=== PATIENT | female | born 1940 | race Caucasian/White ===

== ENCOUNTER 2016-05-29 13:35 | Inpatient (IN) | payer MEDICARE, BC ==
[~2016-05-29] VITALS: Ht 167.6 cm; Wt 72.6 kg
--- NOTE | 2016-05-29 13:25 | NUR ---
RECIEVED PERSONAL PASSENGER AT FRONT DOOR FROM [facility];GREETED WITH WC.ORIENTED TO RM [id number];CL IN REACH.DRSG DRY AND INTACT TO LEFT HIP.
--- NOTE | 2016-05-29 16:00 | NUR ---
RESTING QUIETLY.CL IN REACH.
[2016-05-29 16:30] VITALS: BP 96/69; BMI 25.8
[2016-05-29 19:16] VITALS: BP 106/75
--- NOTE | 2016-05-29 19:45 | NUR ---
PT IN BED WITH OUT GOING NURSE AT BEDSIDE. NO NEEDS OR COMPLAINTS MADE KNOWN AT THIS TIME. ELEVATED TEMP OF 101.1 WITH TYLENOL GIVEN BY OUTGOING NURSE. WILL REASSES. CALL LIGHT IN REACH.
--- NOTE | 2016-05-29 22:10 | NUR ---
PT TEMP REASSESSED WITH A TEMP OF 99.4. WILL CONTINUE TO OBSERVE. CALL LIGHT IN REACH.
--- NOTE | 2016-05-30 01:52 | NUR ---
PT IN BED WITH EYES CLOSED AND CHEST RISING. NO SIGN/SYMPTOMS OF DISTRESS NOTED AT THIS TIME. CALL LIGHT IN REACH.
--- NOTE | 2016-05-30 05:34 | NUR ---
PT IN BED AND REQUEST ASSIST TO BATHROOM WITH ASSIST PROVIDED. PT COMPLAINS OF PAIN TO LEFT HIP 8/ WITH PRN NORCO GIVEN WITH SCHEDULED MEDICATION WITHOUT DIFFICULTY. DRESSING TO LEFT HIP SATURATED WITH SEROSENQUINOUS FLUID AND TAPE TORN AND REMOVED AND REPLACED. TOLERATED WELL. INCISION CLEAN AND WELL APPROXIMATED. NO OTHER COMPLAINTS OR CONCERNS MADE KNOWN. CALL LIGHT IN REACH.
[2016-05-30] MEDS ORDERED: SYNTHROID50 MCG PO (06:37)
[2016-05-30] MEDS ORDERED: PROTONIX40 MG PO (06:39)
[2016-05-30] MEDS ORDERED: ACETAMINOPHEN325 MG PO (06:40)
[2016-05-30] MEDS ORDERED: NEURONTIN 300300 MG PO (06:41)
[2016-05-30] MEDS ORDERED: GLUCOPHAGE500 MG PO (06:41)
[2016-05-30] MEDS ORDERED: LOVASTATIN40 MG PO (06:42)
[2016-05-30] MEDS ORDERED: OXYBUTYNIN CHLOR5 MG PO (06:43)
[2016-05-30] MEDS ORDERED: NAMENDA10 MG PO (06:44)
[2016-05-30] MEDS ORDERED: BUSPAR5 MG PO (06:44)
[2016-05-30] MEDS ORDERED: NORCO 7.5/325 T1 TA1 PO (06:45)
[2016-05-30] MEDS ORDERED: ASPIRIN81 MG PO (06:46)
--- NOTE | 2016-05-30 08:00 | NUR ---
SHIFT ASSMT COMPLETED.DENIES NEEDS.LEFT HIP DRAINING SEROSANGNEOUS.LET UPPER THIGH RED.AND SWOLLEN.CL IN REACH.
[2016-05-30 09:04] VITALS: BP 99/69
--- NOTE | 2016-05-30 09:30 | NUR ---
DRSG CHANGED.INCISION CLEANED.CULTURE OBTAINED.
--- NOTE | 2016-05-30 12:00 | NUR ---
EATING LUNCH.CL IN REACH.
[2016-05-30 12:44] LABS: BASOPHILS 0.2 % (0.0-2.0); HEMATOCRIT 28.8 % (36.0-48.0); HEMOGLOBIN 9.2 g/dL (12-16); IMMATURE GRANULOCYTES 0.2 % (0-5); LYMPHOCYTES 23.6 % (15-50); MCH 29.8 pg (26.0-34.0); MCHC 31.9 g/dL (31.0-37.0); MCV 93.2 fL (80.0-100.0); MEAN PLATELET VOLUME 8.9 fL (7.4-10.4); MONOCYTES 8.9 % (2-11); NEUTROPHILS 65.1 % (40-80); PLATELET COUNT 175 10x3/uL (130-400); RBC 3.09 10x6/uL (4.00-5.40); RDW 14.3 % (11.5-14.5); WBC 5.4 10x3/uL (4.8-10.8)
[2016-05-30 13:07] LABS: ANION GAP 13.7 mmol/L (8-16); CALCIUM 8.9 mg/dL (8.5-10.1); CARBON DIOXIDE 24.3 mmol/L (21.0-32.0)
[2016-05-30 14:16] VITALS: Ht 167.6 cm; Wt 72.6 kg
--- NOTE | 2016-05-30 17:02 | NUR ---
CARE TEAM MEETING: PATIENT NEW TO UNIT AND WILL BE RA AT NEXT MEETING. WILL CONTINUE TO FOLLOW WITH PATIENT UNTIL DISCHARGED
[2016-05-30 19:54] VITALS: BP 118/52
--- NOTE | 2016-05-30 20:10 | NUR ---
ASSISTED PT TO BATHROOM, COLLECTED URINE SPECIMEN, ASSISTED PT BACK TO BED, PT HAS NO COMPLAINTS AT THIS TIME, BED IN LOWEST POSITION AND CALL LIGHT WITHIN REACH.
[2016-05-30 21:07] LABS: APPEARANCE CLEAR (CLEAR); BILIRUBIN NEGATIVE (NEGATIVE); COLOR YELLOW (YELLOW); GLUCOSE NEGATIVE (NEGATIVE); KETONE NEGATIVE (NEGATIVE); LEUKOCYTE ESTERASE TRACE (NEGATIVE); NITRITE NEGATIVE (NEGATIVE); PROTEIN NEGATIVE (NEGATIVE); UROBILINOGEN NORMAL (NORMAL)
[2016-05-30 21:08] LABS: EPITHELIAL CELLS 0-5 /hpf (0-5); RED CELLS - URINE OCC /hpf (0-5); WHITE CELLS - URINE OCC /hpf (0-5)
--- NOTE | 2016-05-31 00:10 | NUR ---
PT IN BED WITH HOB UP FOR COMFORT, EYES CLOSED, CHEST RISING AND FALLING, BED IN LOWEST POSITION, BED ALARM ON, AND CALL LIGHT WITHIN REACH.
--- NOTE | 2016-05-31 02:05 | NUR ---
RESTING IN BED ON LEFT SIDE. NO DISTRESS EVIDENT.
--- NOTE | 2016-05-31 04:25 | NUR ---
PT IN BED WITH HOB UP FOR COMFORT, EYES CLOSED, CHEST RISING AND FALLING, BED IN LOWEST POSITION AND CALL LIGHT WITHIN REACH.
--- NOTE | 2016-05-31 08:00 | NUR ---
SHIFT ASSMT COMPLETED.DRAINAGE FROM LT HIP INCISION LESSENED.DRSG REMAINS INTACT.DENIES NNEDS.
[2016-05-31 09:04] VITALS: BP 89/46
--- NOTE | 2016-05-31 12:00 | NUR ---
TAKEN TO ROOM SET UP FOR MEAL.NOTIFIED WITH C/O PAIN IN CALF AND FREQUENT DRY COUGH.CL IN REACH.
--- NOTE | 2016-05-31 12:00 | NUR ---
REMAINS UP IN TO DO MOUTHCARE.CL IN REACH.
--- NOTE | 2016-05-31 12:31 | NUR ---
CALLED WITH ORDERS TO GET VENOUS DOPPLER AND START MUCINEX.
--- NOTE | 2016-05-31 16:00 | NUR ---
ASSISTED TO BED.CL IN REACH.STATES LEG HURTING MORE TODAY THAN YESTERDAY.
--- NOTE | 2016-05-31 19:30 | NUR ---
PT IN BED WITH HOB UP FOR COMFORT, WATCHING TV, PT STATES SHE HAS A PAIN LEVEL OF 9/10 AND REQUESTED A PAIN PILL, BED IN LOWEST POSITION, BED ALARM ON, AND CALL LIGHT WITHIN REACH.
[2016-05-31 20:57] VITALS: BP 123/66
--- NOTE | 2016-05-31 23:30 | NUR ---
PT IN BED WITH HOB UP FOR COMFORT, EYES CLOSED, CHEST RISING AND FALLING, BED IN LOWEST POSITION, BED ALARM ON, AND CALL LIGHT WITHIN REACH.
--- NOTE | 2016-06-01 01:30 | NUR ---
PT RESTING, EYES CLOSED. BED LOW. CL IN REACH.
--- NOTE | 2016-06-01 02:57 | NUR ---
PT IN BED WITH HOB UP FOR COMFORT, RESTING QUIETLY, RESPIRATIONS EVEN AND UNLABORED, BED IN LOWEST POSITION, BED ALARM ON, AND CALL LIGHT WITHIN REACH.
--- NOTE | 2016-06-01 06:06 | NUR ---
ASSISTED PT TO BATHROOM AND BACK TO BED.
--- NOTE | 2016-06-01 07:30 | NUR ---
LAYING IN BED WITH EYES CLOSED. WAKES EASILY. ALERT AND ORIENTED X3. SPEECH CLEAR. C/O PAIN LEFT HIP. GARRETT NOTED TO INCISION. DENIES NUMBNESS OR TINGLING TO LLE. PEDAL PULSES PRESENT X2. BED ALARM IN USE TO REMIND PT NOT TO GET UP BY SELF.
[2016-06-01 08:43] VITALS: BP 92/43
--- NOTE | 2016-06-01 10:30 | NUR ---
UP IN W/C DENIES NEEDS.
--- NOTE | 2016-06-01 12:04 | NUR ---
SITTING IN W/C IN ROOM EATING LUNCH. PAIN CONTROLLED ON CURRENT MEDS.
--- NOTE | 2016-06-01 13:18 | NUR ---
Nutrition Follow Up: Pt was unavailable at the time of RD visit. Interview deferred. Chart reviewed. Pt is eating 58% meal avg on a diabetic diet. No BM since admit. Wt stable. Labs noted. Meds noted including Metformin. Pt with fair po intake at this time. Rec continue current diet. Will add Glucerna BID. RD following.
[2016-06-01 18:58] VITALS: BP 103/56
--- NOTE | 2016-06-01 19:20 | NUR ---
PT IN BED VISITIN WITH FAMILY, BED IN LOWEST POSITION AND CALL LIGHT WITHIN REACH.
--- NOTE | 2016-06-01 22:30 | NUR ---
PT IN BED WITH HOB UP FOR COMFORT, EYES CLOSED, CHEST RISING AND FALLING, BED IN LOWEST POSITION AND CALL LIGHT WIHTIN REACH.
--- NOTE | 2016-06-02 02:51 | NUR ---
PT ASSISTED TO BR. PT BACK IN BED AND DENIES NEEDS. BED LOW. CL IN REACH.
--- NOTE | 2016-06-02 06:21 | NUR ---
PT AM MEDS ADMINISTERED. PT ASSISTED TO BR. PT BACK IN BED AND DENIES FURTHER NEEDS.
[2016-06-02 07:00] VITALS: BP 98/61
--- NOTE | 2016-06-02 07:30 | NUR ---
RESTING QUIETLY IN BED. EYES CLOSED. CALL LIGHT IN REACH
--- NOTE | 2016-06-02 10:59 | NUR ---
SITTING UP IN W/C TALKING TO THERAPIST
--- NOTE | 2016-06-02 14:39 | NUR ---
UP IN W/C. DENIES INCREASED PAIN OR NEEDS
--- NOTE | 2016-06-02 19:45 | NUR ---
PT RECEIVED IN BED WATCHING TV. REQUEST ASSIST TO GO TO BATHROOM WITH ASSIST GIVEN. AMBULATES USING WALKER WITHOUT DIFFICULTY, WITH COMPLAINTS OF PAIN WHEN SHE IS UP WALKING. PT RETURNED TO BED AND NO OTHER NEEDS MADE KNOWN. CALL LIGHT IN REACH.
[2016-06-03 01:52] VITALS: BP 109/46
--- NOTE | 2016-06-03 03:15 | NUR ---
PT IN BED WITH EYES CLOSED AND CHEST RISING. NO SIGN/SYMPTOMS OF DISTRESS NOTED. CALL LIGHT IN REACH.
[2016-06-03 07:00] VITALS: BP 115/77
--- NOTE | 2016-06-03 08:00 | NUR ---
SHIFT ASSMT COMPLETED,DENIES NEEDS.INCISION LEFT HIP REMAINS INTACT,SOME DRAINAGE NOTED TO DISTAL END OF INCISION.
--- NOTE | 2016-06-03 12:00 | NUR ---
UP IN BED EATING.DENIES NEEDS.
[2016-06-03 19:00] VITALS: BP 113/75
--- NOTE | 2016-06-03 23:37 | NUR ---
PT RECEIVED IN BED WITH EYES OPEN WATCHING TV. COMPLAINS OF PAIN TO LEFT HIP AND KNEE. PRN PAIN MEDICATIONS GIVEN PER MAR. RECEIVED SCHEDULED MEDICATONS PER MAR WITHOUT DIFFICULTY. NO OTHER NEEDS OR CONCERNS MADE KNOWN AT THIS TIME. CALL LIGHT IN REACH.
[2016-06-04 01:51] VITALS: BP 113/75
--- NOTE | 2016-06-04 03:11 | NUR ---
PT UP SITTING ON SIDE OF BED. COMPLAINS OF PAIN TO LEFT HIP AND KNEE. PRN PAIN MEDICATIONS GIVEN PER APR. NO OTHER NEEDS OR CONCERNS MADE KNOWN. CALL TANAIN ARMIDA.
[2016-06-04 06:15] LABS: BASOPHILS 0.2 % (0.0-2.0); EOSINOPHILS 2.7 % (0-7); HEMATOCRIT 30.1 % (36.0-48.0); HEMOGLOBIN 9.4 g/dL (12-16); IMMATURE GRANULOCYTES 0.4 % (0-5); LYMPHOCYTES 25.4 % (15-50); MCH 29.6 pg (26.0-34.0); MCHC 31.2 g/dL (31.0-37.0); MCV 94.7 fL (80.0-100.0); MEAN PLATELET VOLUME 8.9 fL (7.4-10.4); MONOCYTES 6.3 % (2-11); RBC 3.18 10x6/uL (4.00-5.40); RDW 14.8 % (11.5-14.5); WBC 4.8 10x3/uL (4.8-10.8)
[2016-06-04 06:23] LABS: PLATELET COUNT 274 10x3/uL (130-400)
[2016-06-04 06:28] LABS: ANION GAP 7.7 mmol/L (8-16); CALCIUM 9.3 mg/dL (8.5-10.1); POTASSIUM - SERUM 4.7 mmol/L (3.5-5.1)
--- NOTE | 2016-06-04 07:32 | NUR ---
SITTING ON SIDE OF BED. USES WALKER FOR AMBULATION ASST. DENIES NEEDS
--- NOTE | 2016-06-04 07:43 | NUR ---
PT IN BED WITH EYES CLOSED AND CHEST RISING. RECEIVED MEDICATIONS PER MAR WITHOUT DIFFICULTY. PT STATES 4 TO 5 LOOSE STOOLS THROUGHOUT CLOTH BOIL OFF MACHINE OPERATOR. MAR INDICATES PT RECEIVED 3 DOSES OF MILK OF MAGNESIA THROUGHOUT DAY YESTERDAY FOR CONSTIPATION. NO FUTHER COMPLAINTS OF LOOSE STOOL IN THE LAST FEW HOURS. NO OTHER CONCERNS MADE KNOWN. CALL LIGHT IN REACH.
[2016-06-04 08:14] VITALS: BP 98/61
--- NOTE | 2016-06-04 09:38 | RHP ---
PATIENT: PEGGY MEYER MEDICAL RECORD: [id number] ACCOUNT: [id number] LOCATION:[facility]1118 : 38 ADMISSION DATE: 05/29/16 REHABILITATION HISTORY AND PHYSICAL EXAMINATION POST ADMISSION PHYSICIAN EXAMINATION DATE OF ADMISSION TO REHAB: 05/29/2016 ADMITTING DIAGNOSES: Low blood pressure, status post left total hip replacement, acute blood loss anemia and also postop fever. 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 She is postop day #3 from a left total hip replacement in [facility]. Her postop recovery has been complicated by acute blood loss anemia, continued hypotension after fluid bolus, low-grade fever, uncontrolled pain and subtherapeutic INR. Her current hemoglobin and hematocrit are 8.6 and 26.4, blood pressure readings have been quite low with systolics in the 80s and diastolics in the high 50s and the low 60s, temperature readings have also showed elevated temperature up to 101.3. Her glucose has also been somewhat labile. She does have a sat of 92% on room air. She has had some shortness of breath. Chest x-ray showed no acute findings. She does complain of pain. Her QUALITY CONTROL MANAGER was discontinued on May 27. She is currently taking pain medicines. She has minimal assist with [id number] and [id number] transfers. She is ambulating up to 30 feet with a rolling walker. She is leaning over at times and trying to use a walker with her forearms. She is really not safe at this time. She does have fair balance. She does have a lot of pain. She is also requiring a lot of rest breaks. She lives alone in a single-level home with a ramp to her entry. She is retired. She is independent with ADLs and community distances without assistive devices prior to this procedure. She would like to return home and get back to her prior level of functioning if possible. COMORBIDITIES: In this patient include postop pain, postop fever, postop hypotension, acute blood loss anemia, subtherapeutic anticoagulation, diabetes mellitus, neuropathy, degenerative disc disease, anxiety, depression, osteoarthritis, hypothyroidism, dementia, tinnitus, hypercholesterolemia and incontinence. PAST MEDICAL HISTORY: Significant for incontinence, diabetes mellitus, had a history of anxiety and depression, dementia, and chronic renal insufficiency. PAST SURGICAL HISTORY: Includes hysterectomy, lumbar surgery, cataract surgery, cholecystectomy and a total knee. ALLERGIES: PERCOCET. CURRENT MEDICATIONS: Include Synthroid 50 mcg daily, Protonix 40 mg daily, Tylenol 650 mg q.4-6 hours p.r.n. elevated temperature, Neurontin 600 mg t.i.d., metformin 1000 mg b.i.d., Mevacor 40 mg at q.h.s., oxybutynin 10 mg b.i.d., BuSpar 7.5 mg t.i.d., Namenda 10 mg b.i.d., Vernon as needed for pain, and aspirin chewable at 81 mg daily. HABITS: No alcohol or tobacco use. HISTORY AND PHYSICAL [id number] PEGGY MEYER FAMILY HISTORY: Noncontributory. SOCIAL HISTORY: The patient hopes to return back home and get back to her prior level of functioning. REVIEW OF SYSTEMS: GENERAL: Does complain of weakness. HEENT: Denies cold, cough, or congestion. CARDIOVASCULAR: Denies any chest pain. PHYSICAL EXAMINATION: VITAL SIGNS: Stable. She is afebrile. GENERAL: An elderly female in no acute distress, alert upon exam. HEENT: Normocephalic, atraumatic. Mucosa moist. NECK: Supple. No lymphadenopathy. LUNGS: Clear at this time. HEART: Regular rate and rhythm. She is somewhat tachycardic. ABDOMEN: Benign. EXTREMITIES: She does have some drainage to this area, but the hip area does appear clean. NEUROLOGIC: Intact. ASSESSMENT: This is a 75-year-old female patient, who presents secondary to postop complications from a left total hip with noted febrile illness. The patient has potential to make improvement. We instituted the following multidisciplinary therapies including to, but not limited to physical, occupational, respiratory, speech, nutritional services, prosthetics and orthotics. Given her complex condition and risk for more complications, rehabilitation services cannot be provided at a lower level of care such as a intermediate facility. PLAN: 1. Admit to [facility] rehab for intensive inpatient therapy to include the following disciplines: A. Physical therapy to improve gait, all transfer skills and bed mobility to a modified independent level. B. Occupational therapy to improve activities of daily living to a modified independent level. C. Case management to assist with discharge planning and placement options. D. Nutrition to assist with nutritional needs. E. Rehabilitation nursing to assist in monitoring the patient's underlying medical conditions and to assist with any type of bowel or bladder management. 2. The patient's current medication and medical care will be continued. 3. I am going to go ahead and culture this area to her hip. 4. We will go ahead and draw appropriate lab work. 5. We will discuss this patient during care team staff meeting this week. TRANSINT:[id number] Voice Confirmation ID: [id number] DOCUMENT ID: [id number] HISTORY AND PHYSICAL [id number] PEGGY MEYER SCOTT MD at 0938 CC: [id number] DICTATION DATE: 05/30/16 0849 ASSISTANT PROFESSOR OF SPANISH: 05/30/16 1014 ADM IN [facility] [address] [id number]
--- NOTE | 2016-06-04 11:16 | NUR ---
SITTING UP IN ROOM WATCHING TV. PAIN MEDS GIVEN ORDERED
--- NOTE | 2016-06-04 14:21 | NUR ---
WORKING WITH THERAPY
--- NOTE | 2016-06-04 19:00 | NUR ---
PT IN BED WITH HOB UP FOR COMFORT, WATCHING TV, TURNED BED ALARM ON, BED IN LOWEST POSITION AND CALL LIGHT WITHIN REACH.
[2016-06-04 20:26] VITALS: BP 99/73
--- NOTE | 2016-06-04 23:00 | NUR ---
LEFT HIP DRESSING CHANGED. 4X4 AND GAUZE DRESING APPLIED, PT TOLERATED PROCEDURE WELL.
--- NOTE | 2016-06-04 23:15 | NUR ---
PATIENT UP TO BR WITH NURSE ASSIST.
--- NOTE | 2016-06-05 02:15 | NUR ---
PT LYING IN BED WITH HOB UP FOR COMFORT, EYES CLOSED, CHEST RISING AND FALLING, BED IN LOWEST POSITION AND CALL LIGHT WIHTIN REACH.
--- NOTE | 2016-06-05 04:38 | NUR ---
PT IN BED WITH HOB UP FOR COMFORT, EYES CLOSED, CHEST RISING AND FALLING, BED IN LOWEST POSITION AND CALL LIGHT WIHTIN REACH.
--- NOTE | 2016-06-05 10:14 | NUR ---
Nutrition Follow Up: Pt was asleep at the time of RD visit. Chart reviewed. Pt is eating 74% meal avg on a diabetic diet. She is receiving Glucerna BID. No new wt to assess. +BM 06/04/16. Labs reviewed. Meds noted including Metformin. Pt with good po intake at this time. Rec continue current diet, supplement regimen. RD following.
[2016-06-05 12:44] VITALS: BP 126/83
--- NOTE | 2016-06-05 12:56 | NUR ---
SITTING ON SIDE OF BED EATING BREAKFAST. DENIES NEEDS OR C/O. IS ANXIOUS TO DISCHARGE AND GO HOME
--- NOTE | 2016-06-05 17:50 | NUR ---
C/O LEFT HIP PAIN. PAIN MEDS GIVEN ORDERED AND REQUESTED. MINIMAL DRAINAGE NOTED TO LEFT HIP DRAINAGE.
[2016-06-05 19:14] VITALS: BP 154/52
--- NOTE | 2016-06-05 20:44 | NUR ---
LEFT HIP DRESSING CHANGED. CLEANSED WITH WOUND SPRAY WITH 4X4'S, 4X4'S AND ISLAND DRESSING APPLIED. GARRETT INTACT. PT TOLERATED PROCEDURE WELL. DONE BY TOR BLAKE.
[2016-06-06 06:46] LABS: BASOPHILS 0.4 % (0.0-2.0); EOSINOPHILS 2.4 % (0-7); HEMOGLOBIN 9.5 g/dL (12-16); IMMATURE GRANULOCYTES 0.4 % (0-5); LYMPHOCYTES 31.9 % (15-50); MCH 30.1 pg (26.0-34.0); MCHC 31.7 g/dL (31.0-37.0); MCV 94.9 fL (80.0-100.0); MEAN PLATELET VOLUME 8.5 fL (7.4-10.4); MONOCYTES 9.3 % (2-11); NEUTROPHILS 55.6 % (40-80); PLATELET COUNT 293 10x3/uL (130-400); RBC 3.16 10x6/uL (4.00-5.40); RDW 14.8 % (11.5-14.5); WBC 4.5 10x3/uL (4.8-10.8)
[2016-06-06 07:00] LABS: ANION GAP 11.2 mmol/L (8-16); CALCIUM 9.5 mg/dL (8.5-10.1); CARBON DIOXIDE 29.8 mmol/L (21.0-32.0)
--- NOTE | 2016-06-06 08:00 | NUR ---
SHIFT ASSMT COMPLETED.DRSG LT THIGH INTACT.CL IN REACH.ALARM WAIVER SIGNED.
[2016-06-06 09:11] VITALS: BP 109/65
--- NOTE | 2016-06-06 12:00 | NUR ---
SITTING ON SIDE OF BED EATING.CL IN REACH.
--- NOTE | 2016-06-06 17:16 | NUR ---
CARE TEAM MEETING: PATIENT FAMILY ATTENDED MEETING. TENATIVE DISCHARGE DATE IS 06/08/16. WILL CONTINUE TO FOLLOW WITH PATIENT UNTIL DISCHARGED
[2016-06-06 19:15] VITALS: BP 99/53
--- NOTE | 2016-06-06 19:56 | NUR ---
PT IN BED WITH HOB UP FOR COMFORT, RESTING QUIETLY, RESPIRATIONS EVEN AND UNLABORED, BED IN LOWEST POSITION AND CALL LIGHT WITHIN REACH.
--- NOTE | 2016-06-06 23:56 | NUR ---
PT IN BED WITH HOB UP FOR COMFORT, RESTING QUIETLY, BED IN LOWEST POSITION AND CALL LIGHT WITHIN REACH.
--- NOTE | 2016-06-07 03:31 | NUR ---
PT IN BED WITH HOB UP FOR COMFORT, EYES CLOSED, CHEST RISING AND FALLING, BED IN LOWEST POSITION AND CALL LIGHT WITHIN REACH.
--- NOTE | 2016-06-07 03:49 | NUR ---
PT IN BED WITH EYES CLOSED AND CHEST RISING. NO CONCERNS AT THIS TIME. CALL LIGHT IN REACH.
--- NOTE | 2016-06-07 08:00 | NUR ---
SHIFT ASSMT COMPLETED.
[2016-06-07 08:20] VITALS: BP 85/52
[2016-06-07] MEDS ORDERED: HYDROCODONE-APA1 TAB PO (08:30)
--- NOTE | 2016-06-07 12:00 | NUR ---
EATING LUNCH ON SIDE OF BED.
--- NOTE | 2016-06-07 16:00 | NUR ---
RESTING QUIETLY.CL IN REACH.
--- NOTE | 2016-06-07 16:09 | NUR ---
PATIENT DISCHARGING ON 06/08/16 WITH DAUGHTER. [facility] WILL FOLLOW WITH PATIENT AT HOME. NO NEW DME NEEDED SHE HAS WALKER. DR. CORBY CORNELL 06/19/16 @ 9:30, DR. CAMACHO 06/12/16 @ 9:30.PATIENT CHOICE FORM FOR HOME HEALTH AND [facility] FORM SIGNED, EXPLAINED AND FILED IN CHART.PATIENT EDUCATED ON SIGNS AND SYMPTOMS OF INFECTION TO SURGICAL SITE. ORDERS HAVE BEEN FAXED WITH CONFORMATION RECIEVED
[2016-06-07 19:10] VITALS: BP 98/50
--- NOTE | 2016-06-07 20:15 | NUR ---
PT. SITTING ON THE SIDE OF THE BED THE CHIEF ACCOUNTING OFFICER IS HELPING PT. ORGANIZE HER BELONGINGS PT. IS GOING HOME TOMORROW AND PT. DOESN'T WANT TO FORGET ANYTHING. ASSESSMENT COMPLETED. NO VOICED NEEDS AT THIS TIME AND CALL LIGHT IS WITHIN REACH.
--- NOTE | 2016-06-07 22:03 | NUR ---
PT. IN BED WITH HOB UP FOR COMFORT AND IS WATCHING TV. NO VOICED NEEDS AT THIS TIME AND HER CALL LIGHT IS WITHIN REACH.
--- NOTE | 2016-06-08 00:03 | NUR ---
PT. IN BED WITH HOB UP FOR COMFORT WITH EYES CLOSED AND RESP. DEEP AND EVEN. CALL LIGHT REMAINS WITHIN REACH.
--- NOTE | 2016-06-08 02:16 | NUR ---
PT. IN BED WITH HOB UP FOR COMFORT WITH EYES CLOSED AND RESP. DEEP AND EVEN. CALL LIGHT REMAINS WITHIN REACH.
--- NOTE | 2016-06-08 03:09 | NUR ---
PT. IN BED WITH HOB UP FOR COMFORT WITH EYES CLOSED AND RESP. DEEP AND EVEN. CALL LIGHT REMAINS WITHIN REACH.
[2016-06-08 06:21] LABS: BASOPHILS 0.2 % (0.0-2.0); EOSINOPHILS 1.8 % (0-7); HEMATOCRIT 30.4 % (36.0-48.0); HEMOGLOBIN 9.6 g/dL (12-16); IMMATURE GRANULOCYTES 0.4 % (0-5); LYMPHOCYTES 22.5 % (15-50); MCH 29.8 pg (26.0-34.0); MCHC 31.6 g/dL (31.0-37.0); MCV 94.4 fL (80.0-100.0); MEAN PLATELET VOLUME 8.8 fL (7.4-10.4); MONOCYTES 8.7 % (2-11); NEUTROPHILS 66.4 % (40-80); PLATELET COUNT 317 10x3/uL (130-400); RBC 3.22 10x6/uL (4.00-5.40); RDW 14.7 % (11.5-14.5); WBC 5.4 10x3/uL (4.8-10.8)
[2016-06-08 06:32] LABS: CALCIUM 9.5 mg/dL (8.5-10.1); CARBON DIOXIDE 28.8 mmol/L (21.0-32.0); POTASSIUM - SERUM 4.8 mmol/L (3.5-5.1)
--- NOTE | 2016-06-08 07:30 | NUR ---
RESTING QUIETLY IN BED CALL LIGHT IN REACH
[2016-06-08 08:03] VITALS: BP 106/53
--- NOTE | 2016-06-08 14:00 | NUR ---
D/C HOME WITH ALL PERSONAL BELONGINGS. DENIES NEEDING ANY MEDS CALLED IN. WENT OVER D/C PLAN WITH PT. LEFT HIP IS FIRM AND RED AROUND INCISION LINE. NO DRAINAGE NOTED TODAY. PT STATES PAIN MEDS EFFECTIVE IN CONTROLLING PAIN.
== END 2016-06-08 14:00 | disposition home health service (06) | DRG 560 ==
LOC: D.REHAB 13:35
PROVIDERS: ADMIT Emergency Medicine
DX: Z47.1 Aftercare following joint replacement surgery (principal); D62 Acute posthemorrhagic anemia; Z96.642 Presence of left artificial hip joint; R50.82 Postprocedural fever; E11.40 Type 2 diabetes mellitus with diabetic neuropathy, unspecified; I95.81 Postprocedural hypotension; F41.8 Other specified anxiety disorders; M19.90 Unspecified osteoarthritis, unspecified site; E03.9 Hypothyroidism, unspecified; F03.90 Unspecified dementia, unspecified severity, without behavioral disturbance, psychotic disturbance, mood disturbance, and anxiety; E78.00 Pure hypercholesterolemia, unspecified

== ENCOUNTER 2017-09-10 23:51 | Emergency (ER) | payer MEDICARE, BC ==
[~2017-09-10] VITALS: Ht 167.6 cm; Wt 66.8 kg
[~2017-09-10 23:51] MED LIST: ACETAMINOPHEN325 MG PO; ASPIRIN81 MG PO; BUSPAR5 MG PO; GLUCOPHAGE500 MG PO; HYDROCODONE-APA1 TAB PO; LOVASTATIN40 MG PO; NAMENDA10 MG PO; NEURONTIN 300300 MG PO; NORCO 7.5/325 T1 TA1 PO; OXYBUTYNIN CHLOR5 MG PO; PROTONIX40 MG PO; SYNTHROID50 MCG PO
[2017-09-11 00:06] VITALS: Ht 167.6 cm; Wt 66.8 kg
[2017-09-11 01:05] LABS: BASOPHILS 0.2 % (0-2); EOSINOPHILS 0.9 % (0-7); HEMOGLOBIN 13.2 g/dL (12-16); IMMATURE GRANULOCYTES 0.2 % (0-5); LYMPHOCYTES 37.5 % (15-50); MCH 31.4 pg (26.0-34.0); MCHC 34.7 g/dL (31.0-37.0); MCV 90.5 fL (80.0-100.0); MEAN PLATELET VOLUME 8.5 fL (7.4-10.4); NEUTROPHILS 50.2 % (40-80); RDW 13.4 % (11.5-14.5); WBC 5.3 10x3/uL (4.8-10.8)
[2017-09-11 01:06] LABS: PLATELET COUNT 215 10x3/uL (130-400)
[2017-09-11 01:21] LABS: ALBUMIN 3.8 g/dL (3.4-5.0); ANION GAP 8.3 mmol/L (8-16); BILIRUBIN - TOTAL 0.32 mg/dL (0.2-1.3); CARBON DIOXIDE 29.5 mmol/L (21.0-32.0); CREATININE - SERUM 1.4 mg/dL (0.6-1.3); POTASSIUM - SERUM 3.8 mmol/L (3.5-5.1); PROTEIN - SERUM 7.4 g/dL (6.4-8.2)
[2017-09-11 02:11] LABS: APPEARANCE CLEAR (CLEAR); BILIRUBIN NEGATIVE (NEGATIVE); COLOR YELLOW (YELLOW); GLUCOSE NEGATIVE (NEGATIVE); KETONE NEGATIVE (NEGATIVE); NITRITE NEGATIVE (NEGATIVE); PROTEIN NEGATIVE (NEGATIVE); UROBILINOGEN NORMAL (NORMAL)
[2017-09-11 02:12] LABS: BACTERIA MODERATE /hpf (NONE SEEN); EPITHELIAL CELLS 0-5 /hpf (0-5); HYALINE CAST 0-5 /lpf (NONE SEEN); RED CELLS - URINE 0-5 /hpf (0-5); WHITE CELLS - URINE 0-5 /hpf (0-5)
[2017-09-11] MEDS ORDERED: FLAGYL500 MG PO (02:36)
[2017-09-11 04:02] VITALS: BP 110/77
== END 2017-09-11 04:04 | disposition home or self-care (01) ==
LOC: D.ER 23:51
PROVIDERS: Family Medicine
DX: R19.7 Diarrhea, unspecified (principal); E11.9 Type 2 diabetes mellitus without complications; H44.9 Unspecified disorder of globe